=== PATIENT | female | born 1965 | race Asian ===

== ENCOUNTER 2016-11-21 03:15 | Emergency (ER) | payer BC ==
[2016-11-21 04:00] LABS: PLATELET COUNT 248 x10^3mcL (130-400); RED CELL DISTRIBUTION WIDTH 13.9 % (11.5-14.5)
[2016-11-21 04:09] LABS: CALCIUM 8.4 mg/dL (8.5-10.1); CARBON DIOXIDE 23.4 mmol/L (21-32); CHLORIDE SERUM 103 mmol/L (98-107); CREATININE SERUM 0.9 mg/dL (0.6-1.0); GFR1 > 60 mL/min; GLUCOSE SERUM 400 mg/dL (74-106); POTASSIUM SERUM 3.7 mmol/L (3.5-5.1); SODIUM SERUM 136 mmol/L (136-145)
[2016-11-21 04:14] LABS: ALKALINE PHOSPHATASE 60 U/L (46-116); ALT/SGPT 157 U/L (14-59); AST/SGOT 114 U/L (15-37); BILIRUBIN TOTAL 0.4 mg/dL (0.20-1.00); TOTAL PROTEIN, SERUM 6.8 g/dL (6.4-8.2)
[2016-11-21 04:20] LABS: ALBUMIN 2.9 g/dL (3.4-5.0)
[2016-11-21 06:00] VITALS: BP 147/98
== END 2016-11-21 06:00 | disposition home or self-care (01) ==
LOC: ED 03:15
PROVIDERS: Emergency Medicine
DX: R06.00 Dyspnea, unspecified (principal); E11.9 Type 2 diabetes mellitus without complications; I10 Essential (primary) hypertension; J45.909 Unspecified asthma, uncomplicated; Z79.51 Long term (current) use of inhaled steroids
CPT/HCPCS: 82962; Q0092